=== PATIENT | female | born 1975 | race Caucasian/White ===

== ENCOUNTER 2017-12-28 17:48 | Emergency (ER) | payer OTHER ==
[~2017-12-28] VITALS: Ht 152.4 cm; Wt 63.5 kg
[~2017-12-28 17:48] MED LIST: ASA81 MG PO; BUTALBITAL-APAP1 TA3; CRESTOR10 MG PO; CRESTOR20 MG PO; DICLOFENAC POTA50 MG; FIORICET TABLET1 TAB; TOPROL XL50 MG PO
== END 2017-12-28 22:20 | disposition home or self-care (01) ==
LOC: ER 17:48
DX: G44.209 Tension-type headache, unspecified, not intractable (principal)

== ENCOUNTER 2018-06-03 15:01 | Emergency (ER) | payer OTHER ==
[~2018-06-03] VITALS: Ht 152.4 cm; Wt 61.7 kg
== END 2018-06-03 17:29 | disposition home or self-care (01) ==
LOC: ER 15:01
DX: H00.14 Chalazion left upper eyelid (principal)

== ENCOUNTER 2018-06-13 21:57 | Emergency (ER) | payer OTHER ==
[~2018-06-13] VITALS: Ht 152.4 cm; Wt 63.5 kg
[2018-06-14] MEDS ORDERED: KETO10TA2 PO (03:09)
== END 2018-06-14 04:00 ==
LOC: ER 21:57
DX: M94.0 Chondrocostal junction syndrome [Tietze] (principal); F41.8 Other specified anxiety disorders

== ENCOUNTER 2018-08-07 14:50 | Emergency (ER) | payer OTHER ==
[~2018-08-07] VITALS: Ht 152.4 cm; Wt 64.0 kg
[~2018-08-07 14:50] MED LIST changes: +KETO10TA2 PO
== END 2018-08-07 18:45 | disposition home or self-care (01) ==
LOC: ER 14:50
DX: B34.9 Viral infection, unspecified (principal); M54.31 Sciatica, right side

== ENCOUNTER 2018-11-13 18:18 | Emergency (ER) | payer OTHER ==
[~2018-11-13] VITALS: Ht 152.4 cm; Wt 61.2 kg
== END 2018-11-13 20:41 | disposition home or self-care (01) ==
LOC: ER 18:18
DX: H10.31 Unspecified acute conjunctivitis, right eye (principal); H01.001 Unspecified blepharitis right upper eyelid

== ENCOUNTER 2019-03-26 09:40 | Outpatient (CLI) | payer OTHER | END 2019-03-26 09:50 | disposition home or self-care (01) | LOC: SONOGRAMA 09:40 | DX: R22.32 Localized swelling, mass and lump, left upper limb (principal) ==